=== PATIENT | female | born 1985 | race African-American/Black ===

== ENCOUNTER 2016-06-12 11:05 | Emergency (ER) | payer MEDICAID ==
[~2016-06-12] VITALS: Ht 162.6 cm; Wt 58.0 kg
[2016-06-12 11:17] VITALS: BP 105/52
== END 2016-06-12 14:34 | disposition left against medical advice (07) ==
LOC: ER 13:22
DX: Z53.21 Procedure and treatment not carried out due to patient leaving prior to being seen by health care provider (principal)

== ENCOUNTER 2018-11-11 08:59 | Emergency (ER) | payer MEDICAID, OTHER ==
[~2018-11-11] VITALS: Ht 162.6 cm; Wt 65.0 kg
[~2018-11-11 08:59] MED LIST: LOV60 SUBCUT
[2018-11-11] MEDS ORDERED: SODIUM CHLORIDE 0.9% 1,000 ML IV ONE (09:57)
[2018-11-11] MEDS ORDERED: ONDANSETRON HCL 4MG/2ML INJ IV STA (09:57)
[2018-11-11 11:21] LABS: BASOPHILS % 0.9 % (0.0-2.0); EOSINOPHILS % 0.9 % (0.0-5.0); HEMATOCRIT. 39.9 % (36.0-48.0); HEMOGLOBIN. 13.1 g/dL (12.0-16.0); LYMPHOCYTES % 17.8 % (20.0-50.0); MEAN CORPUSCULAR HEMOGLOBIN 29.1 pg (28.0-32.0); MEAN CORPUSCULAR VOLUME 88.2 fL (81.0-99.0); MEAN PLATELET VOLUME 8.3 fl (7.4-10.4); MONOCYTES % 6.8 % (2.0-8.0); NEUTROPHILS % 73.6 % (40.0-76.0); PLATELET 272 x1000/uL (130-400); RED BLOOD CELL COUNT 4.52 mill/uL (4.2-5.4); RED CELL DISTRIBUTION WIDTH 16.2 % (11.6-14.6)
[2018-11-11 11:24] LABS: CHLORIDE 101 mEq/L (98-107)
[2018-11-11 11:35] LABS: CLARITY URINE CLOUDY (CLEAR); COLOR URINE YELLOW (YELLOW); KETONES URINE 1+ (NEGATIVE); LEUKOCYTE ESTERASE URINE NEGATIVE (NEGATIVE); NITRITE URINE NEGATIVE (NEGATIVE); OCCULT BLOOD URINE NEGATIVE (NEGATIVE); PROTEIN URINE 2+ (NEGATIVE); SPECIFIC GRAVITY URINE 1.026 (1.005-1.030)
[2018-11-11 12:25] VITALS: BP 121/67
== END 2018-11-11 12:32 | disposition home or self-care (01) ==
LOC: ER 08:59
DX: O26.891 Other specified pregnancy related conditions, first trimester (principal); R10.9 Unspecified abdominal pain; R11.2 Nausea with vomiting, unspecified; Z3A.01 Less than 8 weeks gestation of pregnancy; Z86.711 Personal history of pulmonary embolism; Z79.01 Long term (current) use of anticoagulants
CPT/HCPCS: 36415; 76801; 76817; 80053; 81003; 81025; 85025; 86850; 86900; 86901; 96361; 96374; 99284; J2405; J7030

== ENCOUNTER 2020-10-03 17:00 | Emergency (ER) | payer OTHER ==
[~2020-10-03] VITALS: Ht 162.6 cm; Wt 67.0 kg
[2020-10-03] MEDS ORDERED: METHYLPREDNISOLONE SOD SUCC 125 MG/2 ML VIAL IV STA (17:36)
[2020-10-03] MEDS ORDERED: ALBUTEROL (0.083%) 2.5MG/3ML NEB HHN STA (17:36)
[2020-10-03] MEDS ORDERED: MAGNESIUM 2 G PREMIX 50 ML IV ONE (17:45)
[2020-10-03] MEDS ORDERED: SODIUM CHLORIDE 0.9% 1,000 ML IV ONE (17:45)
[2020-10-03 18:19] LABS: BASOPHILS % 0.3 % (0.0-2.0); EOSINOPHILS % 1.8 % (0.0-5.0); HEMATOCRIT. 32.4 % (36.0-48.0); HEMOGLOBIN. 10.7 g/dL (12.0-16.0); LYMPHOCYTES % 10.2 % (20.0-50.0); MEAN CORPUSCULAR HEMOGLOBIN 31.5 pg (28.0-32.0); MEAN CORPUSCULAR VOLUME 95.1 fL (81.0-99.0); MEAN PLATELET VOLUME 7.9 fl (7.4-10.4); MONOCYTES % 5.7 % (2.0-8.0); PLATELET 235 x1000/uL (130-400); RED CELL DISTRIBUTION WIDTH 14.1 % (11.6-14.6)
[2020-10-03 18:28] LABS: CHLORIDE 107 mEq/L (98-107)
[2020-10-03] MEDS ORDERED: ACETAMINOPHEN 325MG TABLET PO ONE (18:30)
[2020-10-03] MEDS ORDERED: ALBU6.7H9 INH (21:20)
[2020-10-03] MEDS ORDERED: ALBU2.5V13 NEB (21:21)
[2020-10-03] MEDS ORDERED: P50 MT (21:21)
[2020-10-03 21:30] VITALS: BP 180/61
== END 2020-10-03 22:25 | disposition home or self-care (01) ==
LOC: ER 17:00
DX: O99.513 Diseases of the respiratory system complicating pregnancy, third trimester (principal); Z88.0 Allergy status to penicillin; Z3A.28 28 weeks gestation of pregnancy
CPT/HCPCS: 36415; 71045; 80053; 83880; 84484; 85025; 93005; 94640; 96365; 96375; 99285; J2930; J3475; J7030

== ENCOUNTER 2020-12-01 14:58 | Inpatient (IN) | payer OTHER ==
[~2020-12-01] VITALS: Ht 162.6 cm; Wt 61.7 kg
[~2020-12-01 14:58] MED LIST changes: +ALBU2.5V13 NEB; +ALBU6.7H9 INH; +P50 MT
[2020-12-01] MEDS ORDERED: LANOLIN OINT 7GM TUBE TOP PRN (16:15)
[2020-12-01] MEDS ORDERED: IBUPROFEN 400MG TABLET PO PRN (16:15)
[2020-12-01] MEDS ORDERED: DEXT 5%/LR + PITOCIN 20UNITS/L 1,000 ML IV SCH ×2 (16:15→19:30)
[2020-12-01] MEDS ORDERED: RHO(D) IMMUNE GLOBULIN 300 MCG/SYR IM PRN (16:15)
[2020-12-01] MEDS: IBUPROFEN 800MG TABLET PO PRN (16:30)
[2020-12-01 17:30] VITALS: BP 110/55
[2020-12-01 18:00] VITALS: BP 119/56
[2020-12-01] MEDS ORDERED: ALBUTEROL 6.7GM HFA INHALER ORI PRN (18:15)
[2020-12-01 19:30] VITALS: BP 132/88
[2020-12-01 21:18] LABS: HEMATOCRIT 32.5 % (36.0-48.0); HEMOGLOBIN 10.7 g/dL (12.0-16.0); MEAN CORPUSCULAR VOLUME 90.7 fL (81.0-99.0); PLATELET 243 x1000/uL (130-400); RED BLOOD CELL COUNT 3.58 mill/uL (4.2-5.4); RED CELL DISTRIBUTION WIDTH 15.5 % (11.6-14.6)
[2020-12-01 22:09] LABS: PARTIAL THROMBOPLASTIN TIME 25.1 sec (23.4-31.0); PROTHROMBIN TIME 10.3 sec (9.6-11.0)
[2020-12-01 22:33] LABS: HEPATITIS B SURFACE ANTIGEN NEGATIVE
[2020-12-02 04:00] VITALS: BP 115/81
[2020-12-02 06:55] LABS: CLARITY URINE CLEAR (CLEAR); COLOR URINE YELLOW (YELLOW); KETONES URINE NEGATIVE (NEGATIVE); LEUKOCYTE ESTERASE URINE 1+ (NEGATIVE); NITRITE URINE NEGATIVE (NEGATIVE); OCCULT BLOOD URINE 3+ (NEGATIVE); PROTEIN URINE NEGATIVE (NEGATIVE); SPECIFIC GRAVITY URINE 1.013 (1.005-1.030); UROBILINOGEN URINE 0.2 E.U./dL (0.2-1.0)
[2020-12-02 07:14] LABS: *AMPHETAMINES SCREEN URINE NEGATIVE (NEGATIVE); *BARBITURATES SCREEN URINE NEGATIVE (NEGATIVE); *BENZODIAZEPINES SCREEN URINE NEGATIVE (NEGATIVE)
[2020-12-02 07:15] LABS: CANNABINOID URINE SCREEN NEGATIVE (NEGATIVE); METHADONE URINE SCREEN NEGATIVE (NEGATIVE); OPIATES URINE SCREEN NEGATIVE (NEGATIVE)
[2020-12-02 07:16] LABS: *COCAINE SCREEN URINE NEGATIVE (NEGATIVE); PHENCYCLIDINE URINE SCREEN NEGATIVE (NEGATIVE)
[2020-12-02 08:15] VITALS: BP 122/82
[2020-12-02] MEDS: PRENATAL VIT/FE FUMARATE/FA TABLET PO SCH (09:09)
[2020-12-02] MEDS ORDERED: INFLUENZA VACCINE 05/PF 0.5 ML SYRINGE IM ONE (10:00)
[2020-12-02] MEDS ORDERED: RHO(D) IMMUNE GLOBULIN 300 MCG/SYR IM ONE (13:15)
[2020-12-02 15:26] VITALS: BP 118/65
[2020-12-02 19:30] VITALS: BP 124/77
[2020-12-02] MEDS: IBUPROFEN 800MG TABLET PO PRN (21:18)
[2020-12-03 04:00] VITALS: BP 116/80
[2020-12-03 08:00] VITALS: BP 119/85
[2020-12-03] MEDS ORDERED: IBUP-2030 PO (09:06)
[2020-12-03] MEDS: PRENATAL VIT/FE FUMARATE/FA TABLET PO SCH (09:16)
== END 2020-12-03 12:30 | disposition home or self-care (01) | DRG 776 ==
LOC: 8 EST LDRP 14:58 → 8EST 17:43
PROVIDERS: ADMIT Obstetrics & Gynecology; ATTEND Obstetrics & Gynecology
PROC: 3E0234Z Introduction of Serum, Toxoid and Vaccine into Muscle, Percutaneous Approach (ICD-10-PCS; principal; 2020-12-02)
DX: Z39.0 Encounter for care and examination of mother immediately after delivery (principal); O99.53 Diseases of the respiratory system complicating the puerperium; J45.909 Unspecified asthma, uncomplicated; Z79.899 Other long term (current) drug therapy; Z88.0 Allergy status to penicillin; M54.30 Sciatica, unspecified side
CPT/HCPCS: 36415; 80305; 81003; 85027; 86592; 86703; 86762; 86850; 86886; 86900; 87340; 90384; 99281; J2590

== ENCOUNTER 2021-04-08 11:11 | Emergency (ER) | payer OTHER ==
[~2021-04-08] VITALS: Ht 162.6 cm; Wt 63.0 kg
[~2021-04-08 11:11] MED LIST changes: +IBUP-2030 PO
[2021-04-08] MEDS ORDERED: ACETAMINOPHEN 325MG TABLET PO STA (12:25)
[2021-04-08] MEDS ORDERED: IBUPROFEN 600MG TABLET PO STA (12:25)
[2021-04-08 13:04] LABS: CLARITY URINE CLEAR (CLEAR); COLOR URINE YELLOW (YELLOW); KETONES URINE TRACE (NEGATIVE); LEUKOCYTE ESTERASE URINE NEGATIVE (NEGATIVE); NITRITE URINE NEGATIVE (NEGATIVE); OCCULT BLOOD URINE NEGATIVE (NEGATIVE); PH URINE 5.5 (4.5-8.0); PROTEIN URINE TRACE (NEGATIVE); SPECIFIC GRAVITY URINE 1.025 (1.005-1.030); UROBILINOGEN URINE 0.2 E.U./dL (0.2-1.0)
[2021-04-08 16:19] VITALS: BP 135/65
== END 2021-04-08 16:20 | disposition home or self-care (01) ==
LOC: ER 11:11
DX: B34.9 Viral infection, unspecified (principal); R03.0 Elevated blood-pressure reading, without diagnosis of hypertension; Z20.822 Contact with and (suspected) exposure to COVID-19; J45.909 Unspecified asthma, uncomplicated
CPT/HCPCS: 71045; 81003; 81025; 87426; 87804; 99284

== ENCOUNTER 2024-06-03 08:38 | Emergency (ER) | payer OTHER, MEDICAID ==
[~2024-06-03] VITALS: Ht 165.1 cm; Wt 54.0 kg
[~2024-06-03 08:38] MED LIST changes: +ALBU6.7H3 INH; -ALBU6.7H9 INH
[2024-06-03 08:54] VITALS: TEMP 37; O2SAT 100
[2024-06-03] MEDS: ONDANSETRON 4MG ODT PO ONE (10:26)
[2024-06-03] MEDS: MORPHINE SULFATE 4 MG/ML INJ (FOR IV/IM USE) IM ONE (10:26)
[2024-06-03] MEDS: VISCOUS LIDOCAINE 2% 15 ML UDC MM STA (10:52)
[2024-06-03] MEDS ORDERED: AMOX1TAB16 MT (11:49)
[2024-06-03] MEDS ORDERED: IBUP-2028 MT (11:49)
[2024-06-03] MEDS: DEXAMETHASONE 10 MG/ML VIAL IM ONE (12:09)
[2024-06-03 12:19] VITALS: BP 150/89; PULSE 80; RESP 18; O2SAT 100
== END 2024-06-03 12:13 | disposition home or self-care (01) ==
LOC: ER 09:34
DX: R07.0 Pain in throat (principal); J45.909 Unspecified asthma, uncomplicated; M54.2 Cervicalgia; Z79.52 Long term (current) use of systemic steroids; Z88.0 Allergy status to penicillin
CPT/HCPCS: 99285; 70490; 81025; 71250; 96372; Q0162; J1100; J2270